=== PATIENT | male | born 1940 | race Caucasian/White ===

== ENCOUNTER 2019-01-01 22:21 | Inpatient (IN) | payer MEDICARE ==
[~2019-01-01] VITALS: Ht 172.7 cm; Wt 77.6 kg
[~2019-01-01 22:21] MED LIST: FUROSEMIDE20 M1 ORAL; GLIPIZIDE5 MG ORAL
[2019-01-01] MEDS ORDERED: METFORMIN HCL500 M1 ORAL (22:22)
--- NOTE | 2019-01-01 22:27 | Emergency Room Report ---
History of Present Illness General Chief Complaint: Dyspnea/Respdistress Source: Patient, Family Member, Medical Record, EMS Present Illness HPI This is a 78-year-old male with a history of renal failure on hemodialysis. Dialysis days are Tuesday, , and Tuesday. He presents with chief complaint rest or distress and shortness of breath. Onset tonight. Scheduled dialysis tomorrow. Per EMS he was in the low 50th percentile on room air. They placed him on oxygen. He does have oxygen tanks at home. No fever chills but no nausea no vomiting. Has chest tightness secondary to respiratory distress. Denies any other complaint. Allergies: Coded Allergies: PENICILLINS (Verified Allergy, Unknown, 05/22/18) Patient History Past Medical History: see triage record, old chart reviewed, HTN, renal disease , dialysis Past Surgical History: other Pertinent Family History: none Social History: Denies: smoking Immunizations: other Reviewed Nursing Documentation: PMH: Agreed; PSxH: Agreed Nursing Documentation-PMH Past Medical History: No History, Except For Hx Cardiac Problems: Yes - stent Hx Hypertension: Yes Hx Pacemaker: Yes - right pacemaker Hx Diabetes: Yes Hx Dialysis: Yes - Tue, Thus, Sat Review of Systems Eye: Denies: eye pain, blurred vision ENT: Denies: ear pain, nose congestion, throat swelling Respiratory: Reports: shortness of breath, MARVIN; Denies: cough Cardiovascular: Denies: chest pain, palpitations Gastrointestinal: Denies: abdominal pain, diarrhea, nausea, vomiting Musculoskeletal: Denies: back pain, joint pain Skin: Denies: rash Neurological: Denies: headache, numbness Endocrine: Denies: increased thirst, increased urine Hematologic/Lymphatic: Denies: easy bruising All Other Systems: negative except mentioned in HPI Physical Exam Vital Signs Date Time Temp Pulse Resp B/P (MAP) Pulse Ox O2 Delivery O2 Flow Rate FiO2 01/01/19 22:17 105 22 199/102 86 Simple Mask 6.0 vitals with high blood pressure and hypoxia Sp02 EP Interpretation: reviewed, abnormal General Appearance: well appearing, alert, moderate distress Head: normocephalic, atraumatic Eyes: bilateral eye PERRL, bilateral eye EOMI ENT: hearing grossly normal, normal pharynx Neck: full range of motion, supple, no meningismus Respiratory: chest non-tender, respiratory distress, decreased breath sounds, accessory muscle use, rales Cardiovascular #1: regular rate, rhythm, no murmur Gastrointestinal: normal bowel sounds, non tender, no mass, no organomegaly, no bruit, non-distended Musculoskeletal: back normal, normal range of motion Neurologic: alert, oriented x3 Psychiatric: mood/affect normal Skin: warm/dry Procedures Critical Care Time Critical Care Time Critical care is mandated in this patient who presented with pulmonary edema. Patient require my urgent intervention to attenuate the risks of respiratory collapse which may lead to cardiovascular collapse and . Critical care time is 35 minutes excluding any reportable procedure. Critical care time included evaluation, multiple reevaluation, looking at old charts, interpreting laboratory and diagnostic data, discussing case with patient and family and consultants, and charting. Medical Decision Making Diagnostic Impression: Primary Impression: Pulmonary edema with congestive heart failure Additional Impressions: Acute respiratory failure with hypoxia HTN (hypertension) Qualified Codes: I10 - Essential (primary) hypertension ER Course Patient presents with pulmonary edema secondary to fluid overloaded. He will need dialysis. He is comfortable on BiPAP but requiring 50-60% FiO2. Because of this he is stable for transfer the [facility]. I discussed this with Dr. Sandoval, case # [id number]. He agrees and approved patient for admission here. Leukocytosis probably secondary to acute stress response rather than infectious cause. The no evidence of pneumonia. I contacted Dr. Simon for admission. Lab Results Impression labs with elevated BNP EKG Diagnostic Results Rate: normal Rhythm: NSR ST Segments: other - Bifasicular block Rhythm Strip Diag. Results EP Interpretation: yes Rate: 67 Rhythm: NSR, no PVC's, no ectopy Chest X-Ray Diagnostic Results Chest X-Ray Diagnostic Results : Chest X-Ray Ordered: Yes # of Views/Limited/Complete: 1 View Indication: Shortness of Breath EP Interpretation: Yes Interpretation: no consolidation, no pneumothorax, other - pulm edema Last Vital Signs Date Time Temp Pulse Resp B/P (MAP) Pulse Ox O2 Delivery O2 Flow Rate FiO2 01/01/19 22:17 105 22 199/102 86 Simple Mask 6.0 Status: improved Disposition: ADMITTED INPATIENT Condition: Serious Jose Crawford MD Jan 01, 2019 22:27
[2019-01-01] MEDS ORDERED: Albuterol ud Inhalation HHN ONE (22:30)
--- NOTE | 2019-01-01 22:40 | NUR ---
ED Nurse Note: RECIEVED PT BIBA FROM HOME WITH C/O SUDDEN, SEVERE SOB, PT IS DIALYSIS PT AND DUE TOMORROW, PT ARRIVED WITH RESPIRATORY DISTRESS AT RATE OF 40 AND USE OF ACCESSORY MUSCLES, PT IS ON NRB AND IMMEDIATELY BEING PLACED ON BIPAP, PT IS SPEAKING AND AWAKE AND ALERT, DENIES CP OR ANY PAIN, SHUNT ON LEFT ARM INTACT AND PATENT WITH POSITIVE BRUIT AND THRILL, PT IMMEDIATELY GOWNED AND PLACED ON CARDIAC MONITORING, WILL RESUME CARE ORDERED AND CLOSELY MONITOR.
[2019-01-01 22:51] LABS: HEMATOCRIT 37.3 % (42.0-52.0); HEMOGLOBIN 12.3 G/DL (14.2-18.0); MEAN CORPUSCULAR VOLUME 89 FL (80-99); PLATELET COUNT 310 K/UL (150-450); RED BLOOD COUNT 4.18 M/UL (4.70-6.10); WHITE BLOOD COUNT 19.7 K/UL (4.8-10.8)
[2019-01-01 23:03] LABS: ANION GAP 13 mmol/L (5-15); BLOOD UREA NITROGEN 53 mg/dL (7-18); CALCIUM 9.6 MG/DL (8.5-10.1); CARBON DIOXIDE 29 MMOL/L (21-32); CHLORIDE 94 MMOL/L (98-107); CREATININE 8.4 MG/DL (0.55-1.30); POTASSIUM 5.2 MMOL/L (3.5-5.1); SODIUM 136 MMOL/L (136-145)
[2019-01-01 23:04] LABS: INR 2.6 (0.9-1.1)
[2019-01-01 23:16] LABS: ALANINE AMINOTRANSFERASE 50 U/L (12-78); ALBUMIN 3.6 G/DL (3.4-5.0); ALBUMIN/GLOBULIN RATIO 0.7 (1.0-2.7); ALKALINE PHOSPHATASE 112 U/L (46-116); ASPARTATE AMINO TRANSFERASE 30 U/L (15-37); CKMB 3.9 NG/ML (0.0-3.6); CREATINE KINASE 114 U/L (26-308)
[2019-01-02] VITALS (8 sets, daily range): BP systolic 124–167; BP diastolic 62–97
--- NOTE | 2019-01-02 | NUR ---
ED Nurse Note: PT CONTINUES TO REST IN BED, BREATHING EFFORT IS LESS AND RESPIRATORY RATE IS BETTER, PT DENIES CP OR ANY PAIN, IV SITE PATENT, PT BEING PREPARED FOR ADMISISON, WILL CONTINUE TO CLOSELY MONITOR AND SEND TO FLOOR WHEN BED AVAILABLE, PT REMAINS ON CARDIAC MONITORING, V/S STABLE.
--- NOTE | 2019-01-02 01:50 | NUR ---
ED Nurse Note: PT CONTINUES TO REST IN BED, BREATHING EFFORT IS LESS AND PT STATES HE FEELS MUCH BETTER, O2 SAT=98%, PT IV SITE INTACT AND PATENT, PT NOW HAS ROOM FOR HOSPITAL ADMISSION, BELONGINGS LIST COMPLETED, PT REMAINS ON BIPAP AND TOLERATING WELL, REPORT CALLED TO TRES SALAZAR ON UNIT, PT BEING TAKEN TO FLOOR VIA GURNEY AND ACLS PROTOCOLS WITH RN, ER-TECH, AND RESPIRATORY THERAPIST, NAD NOTED DURING TRANSFER TO FLOOR FOR ADMIT.
--- NOTE | 2019-01-02 02:25 | NUR ---
NURSE NOTES: Patient arrived from ED via gurney. Report received from TRES Yeung. Belongings accounted for at bedside. Placed into bed, legal referee is on, linens are changed, bed on lowest position with alarm activated, 2 side rails up and call light within reach. Patient has also been placed on BiPAP with settings of 12/5 FiO2:65% and O2 saturating at 93%. Left message for Dr. Simon for admission orders, will follow up.
--- NOTE | 2019-01-02 05:28 | NUR ---
NURSE NOTES: Left message on Dr. Simon's urgent line for admission orders, awaiting call back. Will continue to follow up.
[2019-01-02] MEDS ORDERED: GlipiZIDE 5mg tab ORAL SCH (06:30)
--- NOTE | 2019-01-02 07:15 | NUR ---
NURSE NOTES: RECEIVED PT WITH HOB ELEVATED 45 DEGREE AWAKE AND ALERT USING BIPAP 12/5 ,FIO2 65%,SAT 91%.PT REQUESTING FOR H.D .PLACED A TELEPHONE CALL TO DR ROD AND MADE AWARE AND NOTIFIED REGARDING PT IS ON BIPAP DUE TO SOB AND HE IS REQUESTING FOR H.D.DR ROD STATED " I ORDER H.D FOR THIS MORNING AND THE HAND SILVERING SUPERVISOR IS ON HER WAY".PT EXPLAINED THAT HAND SILVERING SUPERVISOR IS COMING SOON.PT STATED " OK".WILL CONT TO MONITOR.
--- NOTE | 2019-01-02 07:25 | NUR ---
HAND-OFF: Report given to TRES FRANCIS.
[2019-01-02] MEDS ORDERED: Dextrose 50% 25ml Syringe IV PRN (07:30)
--- NOTE | 2019-01-02 08:54 | NUR ---
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 ACUTE RESPIRATORY FAILURE WITH HYPOXIA VS: BP 199/102, P 105, T 98.4, RR 48, SpO2 86 ON Bi-pap WBC 19.7, RBC 4.18, Hgb 12.3, Hct 37.3, K 5.2, BUN 53, CR 8.4 IS;LASIX 40mg IV PROVENTIL 2.5mg HHN ADMITTED TO SDU DC PLAN: RETURN HOME
[2019-01-02] MEDS: Heparin 5000 units/ml inj SUBQ SCH ×2 (09:00→20:40)
[2019-01-02] MEDS ORDERED: metFORMIN 500mg tab ORAL SCH (09:00)
[2019-01-02] MEDS ORDERED: Vancomycin 1.5gm Premix IVPB ONE ×2 (10:00→14:00)
--- NOTE | 2019-01-02 10:00 | NUR ---
NURSE NOTES: PT RECEIVING H.D PROCEDURE.DIALYSIS IS PERFORMING BY SANGITA RN.PT TOLERATING WELL PROCEDURE.WILL CONT TO MONITOR.
--- NOTE | 2019-01-02 10:04 | NUR ---
RADIOLOGY DEPT., CHEST X-RAY DONE.-P.DYE
--- NOTE | 2019-01-02 10:30 | NUR ---
*-* INSURANCE *-* ALL CLINICALS AND REVIEWS HAVE BEEN FAXED TO: DAVID MARTI# [phone] [facility]: NEVIN P- [phone] ASK TO BE TRS TO [facility] F- [phone]
[2019-01-02] MEDS: Insulin NovoLOG Flexpen S/S (insulin sensitive) SUBQ SCH ×3 (11:30→20:39)
--- NOTE | 2019-01-02 12:26 | Cardiology Report ---
APPROVED REPORT EKG Measurement Heart [id number] CT [id number] [id number] Sinus tachycardia Right bundle branch block Left posterior fascicular block Bifascicular block Abnormal ECG
--- NOTE | 2019-01-02 12:52 | Diagnostic Imaging Report ---
Indication: Shortness of breath Technique: One view of the chest Comparison: 05/23/2018 Findings: The heart is borderline enlarged. There is extensive diffuse bilateral interstitial and airspace disease. This is more extensive than seen on the previous study. Right chest pacemaker is again noted. Previously demonstrated endotracheal tube is no longer present Impression: Cardiomegaly Evidence of extensive bilateral pulmonary parenchymal infiltrates versus edema
--- NOTE | 2019-01-02 13:00 | NUR ---
NURSE NOTES:HEMODIALYSIS COMPLETED ,OUT PUT 3 LITERS.PT V/S STABLE .PT TOLERATED WELL PROCEDURE.WILL CONT TO MONITOR.
--- NOTE | 2019-01-02 14:13 | Diagnostic Imaging Report ---
Indication: Shortness of breath Technique: One view of the chest Comparison: 01/01/2019 Findings: Bilateral extensive and severe interstitial and airspace disease persists, unchanged. Right chest pacemaker is again demonstrated. The heart is enlarged. There is small amount of pleural fluid demonstrated on the right. Findings are essentially unchanged Impression: Unchanged, over one day, findings as above.
--- NOTE | 2019-01-02 15:15 | History and Physical Report ---
DATE OF ADMISSION: 01/02/2019 REASON FOR ADMISSION: Respiratory distress, pulmonary edema. HISTORY: The patient is a 78-year-old male with a history of renal failure on dialysis. The patient with respiratory distress, acute in nature. The patient noted to have significant oxygen desaturation, placed on BiPAP and admitted to the [facility]. PAST MEDICAL HISTORY: Notable for hypertension, end-stage renal disease on dialysis, history of CAD, history of stent, and history of pacemaker. MEDICATIONS: Reviewed. ALLERGIES: Reviewed. PHYSICAL EXAMINATION: GENERAL: A well-developed male. VITAL SIGNS: Otherwise reviewed. HEENT: Negative. NECK: Supple. LUNGS: With moderate breath sounds. Crackles noted. CARDIAC: S1, S2. Regular rate and rhythm. ABDOMEN: Soft and nontender. EXTREMITIES: No edema. NEUROLOGIC: Grossly nonfocal. LABORATORY DATA: Reviewed. White cell count 19, hemoglobin 12, hematocrit 37, and platelets are 310. Arterial blood gas is pending as of this morning. Chemistry noted, potassium 5.2, BUN and creatinine 53 and 8.4. BNP greater than 35,000. IMPRESSION: 1. Fluid overload. 2. Pulmonary edema. 3. End-stage renal disease. 4. Leukocytosis of unclear etiology. 5. Hypernatremia. 6. Hyperglycemia. 7. Diabetes. RECOMMENDATIONS: Resume medications. Hold metformin with end-stage renal disease. Dialysis per renal. DVT prophylaxis. We will obtain cultures and follow up white cell count as of this morning and stabilize and discharge to [facility] once stable. Marco Simon M.D. DR: KATHERINE JOB#: [id number] CC:
--- NOTE | 2019-01-02 19:15 | NUR ---
HAND-OFF: Report given to .MARIE JOSHUA.
--- NOTE | 2019-01-02 19:25 | NUR ---
NURSE NOTES: Received patient from TRES FRANCIS. Will continue plan of care.
--- NOTE | 2019-01-02 20:30 | Consultation ---
DATE OF CONSULTATION: 01/02/2019 NEPHROLOGY CONSULTATION CONSULTING PHYSICIAN: Rafael Burgess M.D. ATTENDING PHYSICIAN: Marco Simon M.D. REASON FOR CONSULTATION: This is a dialysis patient. HISTORY OF PRESENT ILLNESS: This is a 78-year-old male, who is on dialysis every Tuesday, , Tuesday at [facility] . His last dialysis was 3 days ago on Tuesday. The patient became short of breath and was transferred via paramedics to this hospital. PAST MEDICAL HISTORY: 1. End-stage renal failure, on dialysis. 2. Congestive heart failure. 3. Hypertensive cardiovascular disease. 4. Status post pacemaker. 5. Type 2 diabetes mellitus. HOME MEDICATIONS: Lasix, glipizide, and metformin. ALLERGIES: Penicillins. FAMILY HISTORY: Unremarkable. SOCIAL HISTORY: The patient lives at home. HABITS: He is nonsmoker and nondrinker. There is no history of illicit drug abuse. REVIEW OF SYSTEMS: HEENT: Hearing and eyesight are normal. ENDOCRINE: Significant for type 2 diabetes mellitus. RESPIRATORY: Significant for shortness of breath. NEUROLOGIC: No history of stroke, syncope, or Parkinson disease. PHYSICAL EXAMINATION: GENERAL: This is an elderly male, who is in oremblhq-aj-mpmqvy dyspnea. VITAL SIGNS: Blood pressure 169/96, pulse 72 and regular, respirations 20, and temperature 98. HEENT: The head is normocephalic and atraumatic. Pupils are equal, round, and reactive to light and accommodation consensually. NECK: Supple. Trachea midline. There was no lymphadenopathy or thyromegaly. LUNGS: Bilateral crackles. HEART: Regular rate and rhythm without rubs, murmurs, or gallops. ABDOMEN: Soft and nontender. Bowel sounds were active. EXTREMITIES: No clubbing, cyanosis, or edema. NEUROLOGICAL: He is alert and oriented x4. Cranial nerves II through XII intact. LABORATORY AND ANCILLARY DATA: CBC shows white count 19,700 and hemoglobin 12.3. Sodium 136, potassium 5.2, BUN 53, and creatinine 8.4. ABGs, the most recent one, pH 7.443, pCO2 39.5, and pO2 81.5. Chest x-ray compatible with pulmonary edema. ASSESSMENT: 1. Pulmonary edema. 2. End-stage renal failure, on dialysis. 3. Congestive heart failure. 4. Hypertensive cardiovascular disease. 5. Status post pacemaker. 6. Type 2 diabetes mellitus. PLAN: 1. The patient is already on a hemodialysis. 2. Continue selective medications. Thank you, Dr. Simon, for letting me participate in the care of this patient. Rfaael Burgess M.D. DR: CONY JOB#: [id number] CC:
[2019-01-03] VITALS: BP 138/77
[2019-01-03 04:00] VITALS: BP 133/71
[2019-01-03] MEDS: Insulin NovoLOG Flexpen S/S (insulin sensitive) SUBQ SCH ×4 (05:16→21:11)
--- NOTE | 2019-01-03 06:52 | NUR ---
RESPIRATORY NOTE:Received pt on bipap facial mask and settings of 12/5 fio2 50%. Pt has tape on face. No signs of redness. Pt is showing no s/s of distress. Will cont. to monitor pt.
--- NOTE | 2019-01-03 07:10 | NUR ---
HAND-OFF: Report given to TRES Calle.
--- NOTE | 2019-01-03 07:45 | NUR ---
NURSE NOTES: Report received from TRES Fair. Pt on BiPAP with settings of 12/5 FiO2:65% and O2 saturating at 93%. VSS. Peripheral IV and left forearm shunt in place. Safety measures in place. will continue plan of care.
[2019-01-03 08:00] VITALS: BP 127/80
[2019-01-03] MEDS: Heparin 5000 units/ml inj SUBQ SCH ×2 (08:36→21:15)
[2019-01-03 12:00] VITALS: BP 132/80
--- NOTE | 2019-01-03 13:04 | Nephrology Progress Note ---
Assessment/Plan Plan For HD + UF today Subjective Subjective + SOB Objective Objective Last 24 Hour Vital Signs Date Time Temp Pulse Resp B/P (MAP) Pulse Ox O2 Delivery O2 Flow Rate FiO2 01/03/19 11:22 65 24 95 Facial 50 01/03/19 08:00 Bi-pap 01/03/19 08:00 98.5 66 29 127/80 (96) 99 01/03/19 08:00 70 01/03/19 08:00 65 01/03/19 06:50 60 26 98 Facial 50 01/03/19 05:08 76 27 98 Facial 50 01/03/19 04:00 98.9 66 31 133/71 (91) 99 01/03/19 04:00 Bi-pap 01/03/19 04:00 65 01/03/19 03:45 64 01/03/19 02:46 77 25 99 Facial 50 01/03/19 01:14 78 26 99 Facial 55 01/03/19 00:00 Bi-pap 01/03/19 00:00 99.0 74 31 138/77 (97) 100 01/02/19 23:30 74 01/02/19 22:58 83 27 100 Facial 60 01/02/19 21:11 77 29 99 Facial 60 01/02/19 20:00 Bi-pap 01/02/19 20:00 97.4 75 38 139/78 (98) 99 01/02/19 20:00 65 01/02/19 19:15 81 36 99 Facial 60 01/02/19 19:09 83 01/02/19 17:15 62 28 99 Facial 65 01/02/19 16:00 Bi-pap 01/02/19 16:00 65 01/02/19 16:00 98.4 69 30 136/65 (88) 98 01/02/19 16:00 71 01/02/19 15:15 68 26 98 Facial 65 Intake and Output 01/02/19 01/03/19 19:00 07:00 Intake Total 120 ml Balance 120 ml Intake Oral 120 ml # Bowel Movements 1 Height (Feet): 5 Height (Inches): 8.00 Weight (Pounds): 185 Objective On BIPAP. CV RR Lungs B wheezes. Abd pendulous, SNT. BS + E + edema. HITESH KRISTINE. Rafael Burgess MD Jan 03, 2019 13:04
--- NOTE | 2019-01-03 13:27 | NUR ---
*-* INSURANCE *-* ALL CLINICALS AND REVIEWS HAVE BEEN FAXED TO: DAVID MARTI# [id number] [facility]: NEVIN P- [phone] ASK TO BE TRS TO [facility] F- [phone]
--- NOTE | 2019-01-03 13:33 | NUR ---
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 ACUTE RESPIRATORY FAILURE WITH HYPOXIA VS: BP 127/80, P 65, T 98.5, RR 31, SpO2 95 Bi-pap FiO2 65 IS:HEPARIN SUBQ NOVOLOG SUBQ SDU STATUS
--- NOTE | 2019-01-03 14:00 | NUR ---
NURSE NOTES: HD complete, 3 L out. VSS.
[2019-01-03 16:00] VITALS: BP 144/69
--- NOTE | 2019-01-03 18:32 | General Progress Note ---
Assessment/Plan Assessment/Plan 1. Fluid overload. 2. Pulmonary edema. 3. End-stage renal disease. 4. Leukocytosis of unclear etiology. 5. Hypernatremia. 6. Hyperglycemia. 7. Diabetes. PLAN vanco HD monitor labs and cxr dispo in am if stable and nontoxic improved Subjective Allergies: Coded Allergies: PENICILLINS (Verified Allergy, Unknown, 05/22/18) Subjective improved off BIPAP s/p HD Objective Last 24 Hour Vital Signs Date Time Temp Pulse Resp B/P (MAP) Pulse Ox O2 Delivery O2 Flow Rate FiO2 01/03/19 16:00 71 01/03/19 16:00 65 01/03/19 16:00 Bi-pap 01/03/19 16:00 98.5 64 29 144/69 (94) 99 01/03/19 14:33 71 24 99 Facial 50 01/03/19 12:42 62 22 98 Facial 50 01/03/19 12:00 65 01/03/19 12:00 69 01/03/19 12:00 Bi-pap 01/03/19 12:00 98.3 62 28 132/80 (97) 99 01/03/19 11:22 65 24 95 Facial 50 01/03/19 08:00 Bi-pap 01/03/19 08:00 98.5 66 29 127/80 (96) 99 01/03/19 08:00 70 01/03/19 08:00 65 01/03/19 06:50 60 26 98 Facial 50 01/03/19 05:08 76 27 98 Facial 50 01/03/19 04:00 98.9 66 31 133/71 (91) 99 01/03/19 04:00 Bi-pap 01/03/19 04:00 65 01/03/19 03:45 64 01/03/19 02:46 77 25 99 Facial 50 01/03/19 01:14 78 26 99 Facial 55 01/03/19 00:00 Bi-pap 01/03/19 00:00 99.0 74 31 138/77 (97) 100 01/02/19 23:30 74 01/02/19 22:58 83 27 100 Facial 60 01/02/19 21:11 77 29 99 Facial 60 01/02/19 20:00 Bi-pap 01/02/19 20:00 97.4 75 38 139/78 (98) 99 01/02/19 20:00 65 01/02/19 19:15 81 36 99 Facial 60 01/02/19 19:09 83 Intake and Output 01/02/19 01/03/19 19:00 07:00 Intake Total 120 ml Balance 120 ml Intake Oral 120 ml # Bowel Movements 1 Height (Feet): 5 Height (Inches): 8.00 Weight (Pounds): 185 Objective WDWN NAD clear breath sounds bilaterally without rhonchi or wheeze [id number] without MRG NABS nontender no HSM no CCE nonfocal Marco Simon MD Jan 03, 2019 18:32
--- NOTE | 2019-01-03 19:15 | Physician Query ---
PHYSICIAN DOCUMENTATION QUERY CLARIFICATION OF SIGNS/SYMPTOMS/DX OR CAUSE Dear Dr: Therese Simon : Date: MR #: Patient Name: _LILIA PRITCHARD Admit Date: Documentation clarification is required to meet compliance, accuracy in coding and severity of illness reflection for your patient. There is clinical documentation of SOB with treatment and/or monitoring present in the medical record. Additional documentation is necessary to identify the underlying cause, if suspected for this condition. This is a 78-year-old male, who is on dialysis. The patient became short of breath Physical Exam: GENERAL: This is an elderly male, who is in mddrojdh-hb-hbyfdj dyspnea. LUNGS: Bilateral crackles. Oxygen delivery method: On BIPAP, mask Amount of oxygen:6 LPM Pulse ox: 86L RR: 48,32 Dx:Was diagnosed with pulmonary edema/fluid overloud CXR: Evidence of extensive bilateral pulmonary parenchymal infiltrates versus edema, pleural fluid demonstrated on the right Please document, if known, the appropriate diagnosis (cause of the s/sx/dx) on the progress notes or on this form as an addendum. (Sign and date all documentation) Note: If you are/were treating a suspected, possible or probable, please document it as such. [ x ] Acute respiratory failure [ ] Acute respiratory distress [ ] other, please specify [ ] Unable to determine __ MD Signature: __ Date: If you have any questions, please contact the HIM Department ([facility]) at ext. [phone] or cell #[phone]. Thank You! This form is a permanent part of the medical record MTDD
--- NOTE | 2019-01-03 19:19 | NUR ---
HAND-OFF: Report given to TRES Atkinson.
--- NOTE | 2019-01-03 19:20 | NUR ---
NURSE NOTES: Received patient from Luc JOSHUA. Patient is awake, oriented x4, able to make demands known. Patient is receiving oxygen via Nasal Cannula at 2L/min showing no signs of respiratory distress. Patient received dialysis AM shift and had 3 liters removed. IV site is a Right AC 20 gauge, patent and asymptomatic. Bed is locked, placed in lowest position, call light within reach, side rails up x2. All needs attended to, will continue to monitor.
[2019-01-03 20:00] VITALS: BP 152/87
[2019-01-04] VITALS: BP 140/76
[2019-01-04 04:00] VITALS: BP 149/84
[2019-01-04 05:28] LABS: BASOPHILS % (AUTO) 0.7 % (0.0-2.0); EOSINOPHILS % (AUTO) 2.8 % (0.0-3.0); HEMATOCRIT 28.8 % (42.0-52.0); HEMOGLOBIN 9.6 G/DL (14.2-18.0); MEAN CORPUSCULAR VOLUME 88 FL (80-99); MONOCYTES % (AUTO) 11.1 % (1.0-10.0); NEUTROPHILS % (AUTO) 70.4 % (45.0-75.0); PLATELET COUNT 182 K/UL (150-450); RED BLOOD COUNT 3.26 M/UL (4.70-6.10); RED CELL DISTRIBUTION WIDTH 17.6 % (11.6-14.8); WHITE BLOOD COUNT 9.7 K/UL (4.8-10.8)
[2019-01-04 05:56] LABS: ANION GAP 13 mmol/L (5-15); BLOOD UREA NITROGEN 53 mg/dL (7-18); CALCIUM 8.8 MG/DL (8.5-10.1); CARBON DIOXIDE 25 MMOL/L (21-32); CHLORIDE 96 MMOL/L (98-107); CREATININE 6.9 MG/DL (0.55-1.30); POTASSIUM 4.7 MMOL/L (3.5-5.1); SODIUM 134 MMOL/L (136-145)
[2019-01-04] MEDS: Insulin NovoLOG Flexpen S/S (insulin sensitive) SUBQ SCH ×2 (06:24→11:29)
--- NOTE | 2019-01-04 07:05 | NUR ---
HAND-OFF: Report given to Sheela JOSHUA and Zachery JOSHUA. Addendum: 01/04/19 at 0705 by Liseth Garcia RN Patient shows no signs of distress.
--- NOTE | 2019-01-04 07:08 | NUR ---
NURSE NOTES: Patient received from Demetrio Beebe RN. Patient in bed with no signs of distress. Bed at its lowest position and call light in reach. Will continue to monitor.
--- NOTE | 2019-01-04 07:48 | Nephrology Progress Note ---
Assessment/Plan Plan For HD + UF tomorrow. Anemia of CKD - MELA + IV Iron Subjective Subjective + SOB Objective Objective Last 24 Hour Vital Signs Date Time Temp Pulse Resp B/P (MAP) Pulse Ox O2 Delivery O2 Flow Rate FiO2 01/04/19 05:03 68 25 98 Facial 50 01/04/19 04:10 71 01/04/19 04:00 65 01/04/19 04:00 98.4 74 29 149/84 (105) 100 01/04/19 04:00 Bi-pap 01/04/19 03:17 74 22 100 Facial 50 01/04/19 01:37 77 23 99 Facial 50 01/04/19 00:00 97.7 70 30 140/76 (97) 100 01/04/19 00:00 Bi-pap 01/03/19 23:27 75 01/03/19 23:16 76 23 98 Facial 50 01/03/19 21:20 76 24 100 Facial 50 01/03/19 20:00 Bi-pap 01/03/19 20:00 97.4 71 31 152/87 (108) 99 01/03/19 20:00 50 01/03/19 19:33 78 28 95 Facial 50 01/03/19 19:32 76 01/03/19 16:00 71 01/03/19 16:00 65 01/03/19 16:00 Bi-pap 01/03/19 16:00 98.5 64 29 144/69 (94) 99 01/03/19 14:33 71 24 99 Facial 50 01/03/19 12:42 62 22 98 Facial 50 01/03/19 12:00 65 01/03/19 12:00 69 01/03/19 12:00 Bi-pap 01/03/19 12:00 98.3 62 28 132/80 (97) 99 01/03/19 11:22 65 24 95 Facial 50 01/03/19 08:00 Bi-pap 01/03/19 08:00 98.5 66 29 127/80 (96) 99 01/03/19 08:00 70 01/03/19 08:00 65 Intake and Output 01/03/19 01/04/19 19:00 07:00 Intake Total 250 ml 100 ml Balance 250 ml 100 ml Intake Oral 250 ml 100 ml Laboratory Tests 01/04/19 03:35: White Blood Count 9.7, Red Blood Count 3.26L, Hemoglobin 9.6L, Hematocrit 28.8L , Mean Corpuscular Volume 88, Mean Corpuscular Hemoglobin 29.4, Mean Corpuscular Hemoglobin Concent 33.3, Red Cell Distribution Width 17.6H, Platelet Count 182, Mean Platelet Volume 6.7, Neutrophils (%) (Auto) 70.4, Lymphocytes (%) (Auto) 15.0L, Monocytes (%) (Auto) 11.1H, Eosinophils (%) (Auto ) 2.8, Basophils (%) (Auto) 0.7, Sodium Level 134L, Potassium Level 4.7, Chloride Level 96L, Carbon Dioxide Level 25, Anion Gap 13, Blood Urea Nitrogen 53H, Creatinine 6.9H, Estimat Glomerular Filtration Rate , Glucose Level 70L, Calcium Level 8.8 01/04/19 03:55: Random Vancomycin Level 13.2 Height (Feet): 5 Height (Inches): 8.00 Weight (Pounds): 173 Objective On BIPAP. CV RR Lungs B wheezes. Abd pendulous, SNT. BS + E + edema. HITESH AVF. Rafael Burgess MD Jan 04, 2019 07:48
[2019-01-04 08:00] VITALS: BP 151/76
[2019-01-04] MEDS ORDERED: Vancomycin 1.25gm Premix IVPB ONE (08:00)
[2019-01-04] MEDS: Heparin 5000 units/ml inj SUBQ SCH ×2 (08:25→21:57)
--- NOTE | 2019-01-04 08:36 | General Progress Note ---
Assessment/Plan Assessment/Plan 1. Fluid overload. 2. Pulmonary edema. 3. End-stage renal disease. 4. Leukocytosis of unclear etiology. 5. Hypernatremia. 6. Hyperglycemia. 7. Diabetes. PLAN vanco- dc cultures negatve HD dc home follow up with [facility] and dialysis improved Subjective Allergies: Coded Allergies: PENICILLINS (Verified Allergy, Unknown, 05/22/18) Subjective improved no distress wants to go home Objective Last 24 Hour Vital Signs Date Time Temp Pulse Resp B/P (MAP) Pulse Ox O2 Delivery O2 Flow Rate FiO2 01/04/19 08:00 98.8 77 25 151/76 (101) 94 01/04/19 05:03 68 25 98 Facial 50 01/04/19 04:10 71 01/04/19 04:00 65 01/04/19 04:00 98.4 74 29 149/84 (105) 100 01/04/19 04:00 Bi-pap 01/04/19 03:17 74 22 100 Facial 50 01/04/19 01:37 77 23 99 Facial 50 01/04/19 00:00 97.7 70 30 140/76 (97) 100 01/04/19 00:00 Bi-pap 01/03/19 23:27 75 01/03/19 23:16 76 23 98 Facial 50 01/03/19 21:20 76 24 100 Facial 50 01/03/19 20:00 Bi-pap 01/03/19 20:00 97.4 71 31 152/87 (108) 99 01/03/19 20:00 50 01/03/19 19:33 78 28 95 Facial 50 01/03/19 19:32 76 01/03/19 16:00 71 01/03/19 16:00 65 01/03/19 16:00 Bi-pap 01/03/19 16:00 98.5 64 29 144/69 (94) 99 01/03/19 14:33 71 24 99 Facial 50 01/03/19 12:42 62 22 98 Facial 50 01/03/19 12:00 65 01/03/19 12:00 69 01/03/19 12:00 Bi-pap 01/03/19 12:00 98.3 62 28 132/80 (97) 99 01/03/19 11:22 65 24 95 Facial 50 Intake and Output 01/03/19 01/04/19 19:00 07:00 Intake Total 250 ml 100 ml Balance 250 ml 100 ml Intake Oral 250 ml 100 ml Laboratory Tests 01/04/19 03:35: White Blood Count 9.7, Red Blood Count 3.26L, Hemoglobin 9.6L, Hematocrit 28.8L , Mean Corpuscular Volume 88, Mean Corpuscular Hemoglobin 29.4, Mean Corpuscular Hemoglobin Concent 33.3, Red Cell Distribution Width 17.6H, Platelet Count 182, Mean Platelet Volume 6.7, Neutrophils (%) (Auto) 70.4, Lymphocytes (%) (Auto) 15.0L, Monocytes (%) (Auto) 11.1H, Eosinophils (%) (Auto ) 2.8, Basophils (%) (Auto) 0.7, Sodium Level 134L, Potassium Level 4.7, Chloride Level 96L, Carbon Dioxide Level 25, Anion Gap 13, Blood Urea Nitrogen 53H, Creatinine 6.9H, Estimat Glomerular Filtration Rate , Glucose Level 70L, Calcium Level 8.8 01/04/19 03:55: Random Vancomycin Level 13.2 Height (Feet): 5 Height (Inches): 8.00 Weight (Pounds): 173 Objective WDWN NAD clear breath sounds bilaterally without rhonchi or wheeze [id number] without MRG NABS nontender no HSM no CCE nonfocal Marco Simon MD Jan 04, 2019 08:36
--- NOTE | 2019-01-04 09:47 | NUR ---
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 ACUTE RESPIRATORY FAILURE WITH HYPOXIA VS: BP 151/76, P 77, T 98.4, RR 29, SpO2 100 on Bi-pap RBC 3.26, Hgb 9.6, Hct 28.8, Na 134 IS:VANCOMYCIN 275ml IVPB HEPARIN SUBQ SDU STATUS
--- NOTE | 2019-01-04 10:40 | NUR ---
HAND-OFF: Report given to James Tanner RN.
--- NOTE | 2019-01-04 10:40 | NUR ---
NURSE NOTES: Received report TRES Coker patient awake conversant ,on 4 liters nasal cannula,no sob,assisted up to chair did oral care,partial wash,,stable,slight SOB going back to bed,keep head 30 degrees patient comfort,felt better
[2019-01-04 11:51] VITALS: BP 159/80
--- NOTE | 2019-01-04 12:35 | NUR ---
NURSE NOTES: Patient transferred to [facility] per bed,stable ,on 4 liters nasal cannula,with help TRES Marie,transferred with insulin pen and belongings as listed received by TRES Rodriguez
--- NOTE | 2019-01-04 12:40 | NUR ---
HAND-OFF: Report given to TRES Rodriguez,patient stable,served lunch,patient thankful of care
[2019-01-04 13:10] LABS: BASOPHILS % (AUTO) 0.6 % (0.0-2.0); EOSINOPHILS % (AUTO) 1.7 % (0.0-3.0); HEMATOCRIT 33.4 % (42.0-52.0); HEMOGLOBIN 10.8 G/DL (14.2-18.0); LYMPHOCYTES % (AUTO) 10.1 % (20.0-45.0); MEAN CORPUSCULAR VOLUME 89 FL (80-99); MONOCYTES % (AUTO) 10.2 % (1.0-10.0); NEUTROPHILS % (AUTO) 77.4 % (45.0-75.0); PLATELET COUNT 227 K/UL (150-450); RED BLOOD COUNT 3.76 M/UL (4.70-6.10); WHITE BLOOD COUNT 10.8 K/UL (4.8-10.8)
[2019-01-04] MEDS ORDERED: Heparin Sod 1000 units/ml 10ml IV ONE (13:15)
[2019-01-04] MEDS ORDERED: Heparin Sod 1000 units/ml 10ml IV SCH (13:15)
[2019-01-04 13:24] LABS: ANION GAP 13 mmol/L (5-15); BLOOD UREA NITROGEN 61 mg/dL (7-18); CALCIUM 9.3 MG/DL (8.5-10.1); CARBON DIOXIDE 27 MMOL/L (21-32); CHLORIDE 92 MMOL/L (98-107); CREATININE 7.7 MG/DL (0.55-1.30); POTASSIUM 4.8 MMOL/L (3.5-5.1); SODIUM 132 MMOL/L (136-145)
--- NOTE | 2019-01-04 13:30 | NUR ---
NURSE NOTES: Received a call from TRES Lara from [facility] stating that [facility] had been called and confirmed for tomorrow, 01/05/2019.
--- NOTE | 2019-01-04 15:23 | NUR ---
*-* INSURANCE *-* ALL CLINICALS AND REVIEWS HAVE BEEN FAXED TO: DAVID MARTI# [id number] [facility]: [place] P- [phone]- ASK TO BE TRS TO [facility] F- [phone]
[2019-01-04 16:00] VITALS: BP 165/80
[2019-01-04] MEDS: NovoLOG Insulin Flexpen SUBQ SCH ×2 (17:28→21:55)
--- NOTE | 2019-01-04 17:49 | Cardiology Report ---
APPROVED REPORT EXAM: Two-dimensional and M-mode echocardiogram with Doppler and color Doppler. INDICATION Congestive Heart Failure M-Mode DIMENSIONS IVSd1.3 (0.7-1.1cm)Left Atrium (MM)2.8 (1.6-4.0cm) LVDd5.2 (3.5-5.6cm)Aortic Root3.9 (2.0-3.7cm) PWd1.0 (0.7-1.1cm)Aortic Cusp Exc.1.4 (1.5-2.0cm) IVSs1.4 cm LVDs3.4 (2.5-4.0cm) Normal left ventricular chamber size, systolic function and wall motion to extend visualized . Left ventricular ejection fraction estimated to be 55-60%. No evidence of left ventricular hypertrophy . Anterior Echo-free space, may be due to pericardial fat or effusion. All other cardiac chamber sizes are within normal limits. Focal aortic valve sclerosis with decreased cusp excursion. Mildly Thickened mitral valve leaflets with normal excursion. Pulmonic valve not well visualized. Normal tricuspid valve structure. IVC at normal size with physiologic collapse . Pacemaker wire noted in RV. A color flow and spectral Doppler study was performed and revealed: Mild aortic insufficiency . Peak aortic valve gradient of 22 mm Hg and a mean of 11 mmHg. Aortic valve area 1.4 cm2 calculated by continuity equation. Mild mitral regurgitation. Mitral diastolic velocities suggest reduced left ventricular relaxation c/w mild LV diastolic dysfunction (Grade I ). Mild tricuspid regurgitation. Tricuspid systolic velocities suggests peak right ventricular systolic pressure of 37mmHg,consistent with mild pulmonary hypertension . Trace pulmonic regurgitation
--- NOTE | 2019-01-04 18:55 | NUR ---
RESPIRATORY NOTE: Called to pt's room to assess pt & place on BiPAP. RN at bedside w/ pt as I arrived in the room. Pt alert/awake, follows commands, complaining of SOB, but denies chest pain. Pt also sweating & desaturating. Pt placed on BiPAP 12/5, backup rate 20, 100%. Facial Mask is placed, skin intact, no redness/breakdowns noted. Foam tape applied on pt's nosebridge/cheeks/chin to prevent any irritations. B/S jazmin. diminished, nonproductive cough. Pt calmed down as soon as he was placed on BiPAP. Pt more comfortable on current settings, minimal work of breathing & spO2 starting to come up. BiPAP plugged into red outlet. Pt states he feels much better. Will continue to monitor pt.
--- NOTE | 2019-01-04 19:21 | NUR ---
HAND-OFF: Report given to TRES Jason. Plan of care endorsed
--- NOTE | 2019-01-04 19:53 | NUR ---
NURSE NOTES: Received pt from TRES Rodriguez. Pt asleep with bipap on. Bed in lowest position. Call light within reach. Family at bedside. Will continue to monitor.
[2019-01-04 20:00] VITALS: BP 170/87
--- NOTE | 2019-01-04 22:54 | NUR ---
NURSE NOTES: Called and left a message with Dr. Simon regarding pts request for a sleeping pill. Awaiting call back.
[2019-01-05] VITALS: BP 131/80
[2019-01-05 04:00] VITALS: BP 170/62
--- NOTE | 2019-01-05 05:01 | NUR ---
NURSE NOTES: Pt breathing is abnormally irregular and very anxious. Called and left a message with the dialysis company to see if the nurse can come stat. Awaiting call back.
[2019-01-05] MEDS ORDERED: LORazepam Inj 2mg/ml 1ml IV PRN (05:45)
[2019-01-05] MEDS ORDERED: LORazepam 1mg tab ORAL PRN (05:45)
[2019-01-05] MEDS: NovoLOG Insulin Flexpen SUBQ SCH ×4 (06:32→21:33)
[2019-01-05 06:36] LABS: HEMATOCRIT 29.6 % (42.0-52.0); HEMOGLOBIN 9.9 G/DL (14.2-18.0); MEAN CORPUSCULAR VOLUME 88 FL (80-99); PLATELET COUNT 228 K/UL (150-450); RED BLOOD COUNT 3.36 M/UL (4.70-6.10); RED CELL DISTRIBUTION WIDTH 18.1 % (11.6-14.8); WHITE BLOOD COUNT 12.5 K/UL (4.8-10.8)
--- NOTE | 2019-01-05 06:59 | NUR ---
pt changed his mind about the ativan. Unable to return it to the [facility]. NURSE NOTES:
[2019-01-05] MEDS ORDERED: Heparin Sod 1000 units/ml 10ml IV SCH ×2 (07:00→08:00)
--- NOTE | 2019-01-05 07:30 | NUR ---
NURSE NOTES: Received report from TRES Jason. Pt is resting in bed about to received HD. Pt is on BiPap. He states he feels a bit better but did not get too much rest. Will continue to monitor.
--- NOTE | 2019-01-05 07:46 | NUR ---
HAND-OFF: Report given to TRES Rodriguez. Pt stable and getting HD.
--- NOTE | 2019-01-05 08:21 | Nephrology Progress Note ---
Assessment/Plan Plan For HD + UF today. Anemia of CKD - MELA + IV Iron. Needs more UF + HD! Subjective Subjective Very SOB!!! Objective Objective Last 24 Hour Vital Signs Date Time Temp Pulse Resp B/P (MAP) Pulse Ox O2 Delivery O2 Flow Rate FiO2 01/05/19 05:00 170/62 01/05/19 04:58 121 52 93 Facial 100 01/05/19 04:00 97.9 79 19 170/62 (98) 80 01/05/19 04:00 93 01/05/19 04:00 4.0 100 01/05/19 03:05 72 39 99 Facial 40 01/05/19 01:13 73 35 100 Facial 40 01/05/19 00:00 72 01/05/19 00:00 4.0 40 01/05/19 00:00 99.1 75 18 131/80 (97) 100 01/04/19 22:45 183/88 01/04/19 21:05 72 37 99 Facial 50 01/04/19 21:00 Bi-pap 4.0 01/04/19 20:00 100.1 90 18 170/87 (114) 100 01/04/19 20:00 91 01/04/19 18:50 98 46 92 Facial 100 01/04/19 18:50 98 46 Bi-pap 100 01/04/19 16:44 4.0 65 01/04/19 16:00 70 01/04/19 16:00 97.3 72 19 165/80 (108) 94 01/04/19 12:00 Nasal Cannula 4.0 01/04/19 12:00 4.0 01/04/19 11:51 98.8 80 20 159/80 (106) 94 Intake and Output 01/04/19 01/05/19 18:59 06:59 Intake Total 515.000 ml Output Total 50 ml 0 ml Balance 465.000 ml 0 ml Intake Oral 240 ml IV Total 275.000 ml Output Urine Total 50 ml 0 ml # Voids 1 Laboratory Tests 01/04/19 13:00: White Blood Count 10.8, Red Blood Count 3.76L, Hemoglobin 10.8L, Hematocrit 33.4L, Mean Corpuscular Volume 89, Mean Corpuscular Hemoglobin 28.6, Mean Corpuscular Hemoglobin Concent 32.2, Red Cell Distribution Width 18.0H, Platelet Count 227, Mean Platelet Volume 6.4L, Neutrophils (%) (Auto) 77.4H, Lymphocytes (%) (Auto) 10.1L, Monocytes (%) (Auto) 10.2H, Eosinophils (%) (Auto ) 1.7, Basophils (%) (Auto) 0.6, Sodium Level 132L, Potassium Level 4.8, Chloride Level 92L, Carbon Dioxide Level 27, Anion Gap 13, Blood Urea Nitrogen 61H, Creatinine 7.7H, Estimat Glomerular Filtration Rate , Glucose Level 169#H, Calcium Level 9.3 01/05/19 06:19: White Blood Count 12.5H, Red Blood Count 3.36L, Hemoglobin 9.9L, Hematocrit 29.6L, Mean Corpuscular Volume 88, Mean Corpuscular Hemoglobin 29.5, Mean Corpuscular Hemoglobin Concent 33.4, Red Cell Distribution Width 18.1H, Platelet Count 228, Mean Platelet Volume 6.9, Neutrophils (%) (Auto) , Lymphocytes (%) (Auto) , Monocytes (%) (Auto) , Eosinophils (%) (Auto) , Basophils (%) (Auto) , Neutrophils % (Manual) [Pending], Lymphocytes % (Manual) [Pending], Platelet Estimate [Pending], Platelet Morphology [Pending] 01/05/19 06:20: Arterial Blood pH 7.394, Arterial Blood Partial Pressure CO2 30.9L, Arterial Blood Partial Pressure O2 197.7H, Arterial Blood HCO3 18.5L, Arterial Blood Oxygen Saturation 99.0, Arterial Blood Base Excess -5.5L, Isidoro Test Positive Height (Feet): 5 Height (Inches): 8.00 Weight (Pounds): 173 Objective On BIPAP. CV RR Lungs B wheezes. Abd pendulous, SNT. BS + E + edema. HITESH KRISTINE. Rafael Burgess MD Jan 05, 2019 08:21
[2019-01-05] MEDS: Heparin 5000 units/ml inj SUBQ SCH ×2 (09:00→21:33)
[2019-01-05] MEDS ORDERED: Epoetin Alfa(ESRD on dialysis)10,000 unit/ml vial SUBQ SCH ×3 (09:00→21:00)
[2019-01-05 09:38] LABS: ANION GAP 11 mmol/L (5-15); BLOOD UREA NITROGEN 69 mg/dL (7-18); CALCIUM 8.9 MG/DL (8.5-10.1); CARBON DIOXIDE 25 MMOL/L (21-32); CHLORIDE 95 MMOL/L (98-107); CREATININE 8.1 MG/DL (0.55-1.30); POTASSIUM 5.2 MMOL/L (3.5-5.1); SODIUM 131 MMOL/L (136-145)
--- NOTE | 2019-01-05 10:17 | NUR ---
NURSE NOTES: Called pharmacy regarding patients medication. Per pharmacy, they will retime the order as medication is due at night.
--- NOTE | 2019-01-05 10:33 | Pulmonology Progress Note ---
Assessment/Plan Assessment/Plan Pulmonary Progress Note Assessment/Plan 1. Fluid overload. 2. Pulmonary edema. 3. End-stage renal disease. 4. Leukocytosis of unclear etiology. 5. Hypernatremia. 6. Hyperglycemia. 7. Diabetes. PLAN vanco- dc cultures negative HD follow up with [facility] and dialysis improved Subjective Allergies: Coded Allergies: PENICILLINS (Verified Allergy, Unknown, 05/22/18) Subjective improved no distress no new complaints Objective Vital Signs Noted Laboratory Tests 01/04/19 03:35: White Blood Count 9.7, Red Blood Count 3.26L, Hemoglobin 9.6L, Hematocrit 28.8L , Mean Corpuscular Volume 88, Mean Corpuscular Hemoglobin 29.4, Mean Corpuscular Hemoglobin Concent 33.3, Red Cell Distribution Width 17.6H, Platelet Count 182, Mean Platelet Volume 6.7, Neutrophils (%) (Auto) 70.4, Lymphocytes (%) (Auto) 15.0L, Monocytes (%) (Auto) 11.1H, Eosinophils (%) (Auto ) 2.8, Basophils (%) (Auto) 0.7, Sodium Level 134L, Potassium Level 4.7, Chloride Level 96L, Carbon Dioxide Level 25, Anion Gap 13, Blood Urea Nitrogen 53H, Creatinine 6.9H, Estimat Glomerular Filtration Rate , Glucose Level 70L, Calcium Level 8.8 01/04/19 03:55: Random Vancomycin Level 13.2 Height (Feet): 5 Height (Inches): 8.00 Weight (Pounds): 173 Objective WDWN NAD clear breath sounds bilaterally without rhonchi or wheeze [id number] without MRG NABS nontender no HSM no CCE nonfocal Subjective ROS Limited/Unobtainable: No Allergies: Coded Allergies: PENICILLINS (Verified Allergy, Unknown, 05/22/18) Objective Last 24 Hour Vital Signs Date Time Temp Pulse Resp B/P (MAP) Pulse Ox O2 Delivery O2 Flow Rate FiO2 01/05/19 09:18 97 33 Bi-pap 100 01/05/19 08:00 73 01/05/19 05:00 170/62 01/05/19 04:58 121 52 93 Facial 100 01/05/19 04:00 97.9 79 19 170/62 (98) 80 01/05/19 04:00 93 01/05/19 04:00 4.0 100 01/05/19 03:05 72 39 99 Facial 40 01/05/19 01:13 73 35 100 Facial 40 01/05/19 00:00 72 01/05/19 00:00 4.0 40 01/05/19 00:00 99.1 75 18 131/80 (97) 100 01/04/19 22:45 183/88 01/04/19 21:05 72 37 99 Facial 50 01/04/19 21:00 Bi-pap 4.0 01/04/19 20:00 100.1 90 18 170/87 (114) 100 01/04/19 20:00 91 01/04/19 18:50 98 46 92 Facial 100 01/04/19 18:50 98 46 Bi-pap 100 01/04/19 16:44 4.0 65 01/04/19 16:00 70 01/04/19 16:00 97.3 72 19 165/80 (108) 94 01/04/19 12:00 Nasal Cannula 4.0 01/04/19 12:00 4.0 01/04/19 11:51 98.8 80 20 159/80 (106) 94 Intake and Output 01/04/19 01/05/19 19:00 07:00 Intake Total 515.000 ml Output Total 50 ml 0 ml Balance 465.000 ml 0 ml Intake Oral 240 ml IV Total 275.000 ml Output Urine Total 50 ml 0 ml # Voids 1 Laboratory Tests 01/04/19 13:00: White Blood Count 10.8, Red Blood Count 3.76L, Hemoglobin 10.8L, Hematocrit 33.4L, Mean Corpuscular Volume 89, Mean Corpuscular Hemoglobin 28.6, Mean Corpuscular Hemoglobin Concent 32.2, Red Cell Distribution Width 18.0H, Platelet Count 227, Mean Platelet Volume 6.4L, Neutrophils (%) (Auto) 77.4H, Lymphocytes (%) (Auto) 10.1L, Monocytes (%) (Auto) 10.2H, Eosinophils (%) (Auto ) 1.7, Basophils (%) (Auto) 0.6, Sodium Level 132L, Potassium Level 4.8, Chloride Level 92L, Carbon Dioxide Level 27, Anion Gap 13, Blood Urea Nitrogen 61H, Creatinine 7.7H, Estimat Glomerular Filtration Rate , Glucose Level 169#H, Calcium Level 9.3 01/05/19 06:19: White Blood Count 12.5H, Red Blood Count 3.36L, Hemoglobin 9.9L, Hematocrit 29.6L, Mean Corpuscular Volume 88, Mean Corpuscular Hemoglobin 29.5, Mean Corpuscular Hemoglobin Concent 33.4, Red Cell Distribution Width 18.1H, Platelet Count 228, Mean Platelet Volume 6.9, Neutrophils (%) (Auto) , Lymphocytes (%) (Auto) , Monocytes (%) (Auto) , Eosinophils (%) (Auto) , Basophils (%) (Auto) , Differential Total Cells Counted 100, Neutrophils % ( Manual) 86H, Lymphocytes % (Manual) 7L, Monocytes % (Manual) 7, Eosinophils % ( Manual) 0, Basophils % (Manual) 0, Band Neutrophils 0, Platelet Estimate Adequate, Platelet Morphology Normal, Hypochromasia 2+, Anisocytosis 2+, Spherocytes 1+ 01/05/19 06:20: Arterial Blood pH 7.394, Arterial Blood Partial Pressure CO2 30.9L, Arterial Blood Partial Pressure O2 197.7H, Arterial Blood HCO3 18.5L, Arterial Blood Oxygen Saturation 99.0, Arterial Blood Base Excess -5.5L, Isidoro Test Positive 01/05/19 09:00: Sodium Level 131L, Potassium Level 5.2H, Chloride Level 95L, Carbon Dioxide Level 25, Anion Gap 11, Blood Urea Nitrogen 69H, Creatinine 8.1H, Estimat Glomerular Filtration Rate , Glucose Level 111H, Calcium Level 8.9 Current Medications Medications (Trade) Dose Ordered Sig/Parish Route PRN Reason Start Time Stop Time Status Last Admin Dose Admin Acetaminophen (Tylenol) 650 mg Q4H PRN ORAL TEMP>100.5 01/04/19 13:00 02/03/19 12:59 Clonidine HCl (Catapres Tab) 0.1 mg Q4H PRN ORAL SBP > 150mmHg 01/04/19 13:00 02/01/19 12:59 01/05/19 05:00 Dextrose (Dextrose 50%) 25 ml Q30M PRN IV Hypoglycemia 01/04/19 13:30 02/01/19 07:27 Dextrose (Dextrose 50%) 50 ml Q30M PRN IV hypoglycemia 01/04/19 13:30 02/01/19 07:29 Epoetin Derek (Epoetin Derek(ESRD on dialysis)) 10,000 unit MON-WED-TUE SUBQ 01/05/19 21:00 02/04/19 20:59 Heparin Sodium (Porcine) (Heparin 5000 units/ml) 5,000 units EVERY 12 HOURS SUBQ 01/04/19 21:00 02/01/19 08:59 01/04/19 21:57 Heparin Sodium (Porcine) (Heparin Sod 1000 units/ml 10ml) 2,000 unit ONCE IV 01/05/19 07:00 01/05/19 23:59 Heparin Sodium (Porcine) (Heparin Sod 1000 units/ml 10ml) 2,000 unit ONCE IV 01/06/19 08:30 01/06/19 23:59 Insulin Aspart (NovoLOG) BEFORE MEALS AND HS SUBQ 01/04/19 16:30 02/01/19 11:29 01/05/19 06:32 Lorazepam (Ativan 2mg/ml 1ml) 1 mg Q4H PRN IV For Anxiety 01/05/19 05:45 01/12/19 05:44 Lorazepam (Ativan) 1 mg Q4H PRN ORAL For Anxiety 01/05/19 05:45 01/12/19 05:44 Sodium Chloride 1,000 ml @ 500 mls/hr Q2H PRN IVLG sbp<90 during hd 01/05/19 07:00 01/05/19 23:59 Sodium Chloride 1,000 ml @ 500 mls/hr Q2H PRN IVLG sbp<90 during hd 01/06/19 08:21 01/06/19 23:59 Vancomycin HCl (Vanco rx to dose) 1 ea DAILY PRN MISC Per rx protocol 01/05/19 09:00 02/01/19 08:44 Ilya Frank MD Jan 05, 2019 10:33
[2019-01-05 12:00] VITALS: BP 144/65
--- NOTE | 2019-01-05 13:03 | NUR ---
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 ACUTE RESPIRATORY FAILURE WITH HYPOXIA VS: BP 170/62, P 121, T 97.9, RR 52, SPO2 93 Bi-pap 4.0L FiO2 100 Na 131, K 5.2, BUN 69, CR 8.1, WBC 12.5, RBC 3.36, Hgb 9.9, Hct 29.6 IS:HEPARIN SUBQ NOVOLOG SUBQ CLONIDINE 0.1mg HEPARIN 2,000 units IV TELE STATUS
--- NOTE | 2019-01-05 13:46 | NUR ---
*-* INSURANCE *-* ALL CLINICALS AND REVIEWS HAVE BEEN FAXED TO: DAVID MARTI# [id number] [facility]: [place]EV[place] P- [phone] ASK TO BE TRS TO [facility] F- [phone]
--- NOTE | 2019-01-05 15:45 | NUR ---
RESPIRATORY NOTE: Placed pt back on Bipap with the same previous settings per RN's request due to desaturation, labored/shallow breathing. SOB. Foam tapes are placed on chin/cheeks and nose bridge to prevent skin breakdown. No redness or skin breakdown prior to applying the mask. Pt is awake/alert and not in distress at this time. Alarms are set and audible. Will continue to monitor pt.
[2019-01-05 16:00] VITALS: BP 157/83
[2019-01-05] MEDS ORDERED: NS 275ml ONE (16:11)
--- NOTE | 2019-01-05 16:38 | NUR ---
COLLAR BASTER JUMPBASTING NOTES SPOKE WITH HECTOR LOGAN FROM [facility], ALL CLINICALS FAXED TO UR DEPARTMENT. PT PENDING TRANSFER WHEN BED IS AVAILABLE. SPOKE WITH PT'S SON KASSIE, MADE AWARE OF PENDING TRANSFER TO [facility] WHEN BED AVAILABLE. HECTOR (P) [phone] (F) [phone]
--- NOTE | 2019-01-05 19:29 | NUR ---
NURSE NOTES: Received call from Karen at [place] to give transfer information. Pt will be going to [facility] to room 5703. number to give report is [phone] Report given to TRES Welch. Plan of care endorsed.
--- NOTE | 2019-01-05 19:36 | NUR ---
NURSE NOTES: Received report from TRES Rodriguez. Patient is awake lying semi-perez's; resting comfortably. No signs of acute distress noted; denies pain at this time. On BiPAP with FiO2 of 100% saturating at 100%. AOx4; able to make needs known. Primarily Luxembourgish speaking. Patient able to reposition himself in the bed. Checked IV site; patent and flushed. No erythema, bleeding, or infiltration noted. Left forearm AV shunt noted; thrill and bruit present. Bed at lowest position, brakes on, siderails up x3. Call light within reach. Will continue to monitor.
--- NOTE | 2019-01-05 19:53 | NUR ---
NURSE NOTES: Called [place] at [phone] and spoke to Riley to give report. Explained patients condition. Plan of care endorsed.
[2019-01-05 20:00] VITALS: BP 126/79
--- NOTE | 2019-01-05 20:53 | NUR ---
NURSE NOTES: [facility] arrived to [facility] patient. However, per RN transporter, patient cannot be transferred unless BiPAP FiO2 is less than 100% and patient is stable an hour after titrating FiO2 down to less than 100%. Patient's respiratory rate is currently 46 at 100% FiO2.
--- NOTE | 2019-01-05 21:50 | NUR ---
NURSE NOTES: Notified Leah [facility] skilled nursing case manager, that per [facility] RN transporter, patient can be transported under the condition that patient is stable an hour after titrating patient's BiPAP FiO2 from 100% to less than 100%. Per Leah, patient is unstable for discharge and will not be transferred tonight. Called Dr. Simon to notify him of the situation. No new orders received.
--- NOTE | 2019-01-05 23:25 | NUR ---
NURSE NOTES: Notified Ridge, patient's son, regarding of patient's discharge status and that patient will not be transferred to [facility].
[2019-01-06] VITALS (7 sets, daily range): BP systolic 116–148; BP diastolic 65–82
--- NOTE | 2019-01-06 04:42 | NUR ---
NURSE NOTES: Patient is asleep lying semi-perez's; resting comfortably. No signs of acute distress or pain noted at this time. On BiPAP machine.
--- NOTE | 2019-01-06 04:51 | NUR ---
NURSE NOTES: Patient's temperature noted to be 100.1. Cooling measures applied.
[2019-01-06] MEDS: NovoLOG Insulin Flexpen SUBQ SCH ×4 (06:26→21:22)
--- NOTE | 2019-01-06 06:32 | NUR ---
NURSE NOTES: Rechecked temperature. 98.9.
--- NOTE | 2019-01-06 07:19 | NUR ---
NURSE NOTES: Spoke to Ridge from [facility] regarding patient's hemodialysis procedure today. Was told, "We'll notify the court operations clerk dialysis nurse as soon as possible."
--- NOTE | 2019-01-06 07:24 | NUR ---
HAND-OFF: Report given to TRES Collier. Patient is asleep lying semi-perez's; resting comfortably. On BiPAP machine. In stable condition.
--- NOTE | 2019-01-06 07:35 | NUR ---
NURSE NOTES: Received report from TRES Welch. Patient in bed resting, no active s/s cardiac, respiratory distress noticed at this time. AOx4, SR with BBB HR 85. Patient on Bipap 08/30, FiO2 50%. Endorsed patient schedule for HD today 01/06/19 and Discharge pending due to patient unable to tolerate off Bipap and Dr. Simon made aware. AV shunt on left FA, IV site on right hand 22 G asymptomatic, patent, intact. Bed in lowest position, side rails upx2, call light within reach. Will continue to monitor.
[2019-01-06] MEDS ORDERED: Heparin Sod 1000 units/ml 10ml IV SCH (08:30)
[2019-01-06] MEDS: Heparin 5000 units/ml inj SUBQ SCH ×2 (08:38→21:00)
--- NOTE | 2019-01-06 12:43 | Nephrology Progress Note ---
Assessment/Plan Plan For HD + UF today. Anemia of CKD - MELA + IV Iron. Needs more UF + HD! Subjective Subjective Still SOB. HD finished. UF 4.5 L!! Objective Objective Last 24 Hour Vital Signs Date Time Temp Pulse Resp B/P (MAP) Pulse Ox O2 Delivery O2 Flow Rate FiO2 01/06/19 11:26 88 37 96 Facial 50 01/06/19 09:02 86 39 97 Facial 50 01/06/19 09:00 Bi-pap 01/06/19 08:00 50 01/06/19 08:00 98.9 81 30 132/72 (92) 95 01/06/19 06:56 87 47 Bi-pap 50 01/06/19 06:55 87 47 96 Facial 50 01/06/19 06:32 98.9 85 21 144/82 (102) 100 01/06/19 05:30 80 37 96 Facial 50 01/06/19 04:00 50 01/06/19 04:00 101.1 85 21 144/82 (102) 100 01/06/19 04:00 73 01/06/19 03:10 81 36 95 Facial 50 01/06/19 00:35 88 36 97 Facial 50 01/06/19 00:32 65 01/06/19 00:00 99.1 82 20 139/78 (98) 99 01/06/19 00:00 83 01/05/19 23:29 85 40 98 Facial 50 01/05/19 21:15 89 45 97 Facial 50 01/05/19 21:00 Bi-pap 01/05/19 20:00 86 01/05/19 20:00 99.7 88 24 126/79 (95) 100 01/05/19 18:53 91 44 Bi-pap 100 01/05/19 18:45 91 44 95 Facial 100 01/05/19 16:00 106 01/05/19 16:00 4.0 01/05/19 16:00 98.0 96 22 157/83 (107) 95 01/05/19 15:45 98 37 95 Facial 100 Intake and Output 01/05/19 01/06/19 19:00 07:00 Intake Total 600 ml 50 ml Balance 600 ml 50 ml Intake Oral 600 ml Other 50 ml Laboratory Tests 01/06/19 04:55: Random Vancomycin Level 25.5 Height (Feet): 5 Height (Inches): 8.00 Weight (Pounds): 171 Objective On BIPAP. CV RR Lungs B wheezes. Abd pendulous, SNT. BS + E + edema. HITESH KRISTINE. Rafael Burgess MD Jan 06, 2019 12:43
--- NOTE | 2019-01-06 14:00 | NUR ---
CASE MANAGEMENT: REVIEW SI: PULMONARY EDEMA . ESRD T 97.6 HR 76 RR 39 BP 116/65 SAT 96% BIPAP FIO2 50 WBC 12.5 H/H 9.9/29.6 NA 131 K 5.2 BUN 69 CR 8.1 IS: EPOETIN SQ MWF HEPARIN SQ Q12HR TELEMETRY UNIT STATUS DCP: PATIENT IS FROM HOME
--- NOTE | 2019-01-06 15:44 | NUR ---
NURSE NOTES: Patient got HD, tolerating well, 4.5 L out, last BP 128/80, HR 78. Will continue to monitor.
--- NOTE | 2019-01-06 16:12 | NUR ---
NURSE NOTES: Dr. Simon made aware patient got HD 4.5 L out, tried off Bipap for 2hours, patient able to tolerate with 4L oxygen, O2 sat 94%, HR 84, RR 28. Awaiting for call back. Called returned case inspector, Dee Dee, clarification if [facility] still has bed for the patient.
--- NOTE | 2019-01-06 16:22 | NUR ---
CASE MANAGEMENT: DCPNOTE PER MD ORDER PATIENT REFERRED FOR TRANSFER TO [facility] [phone] PH / [phone] FAX AWAITING BED AVAILABILITY
--- NOTE | 2019-01-06 17:00 | NUR ---
NURSE NOTES: Per dax Howell to discharge patient to [place].
--- NOTE | 2019-01-06 17:12 | Pulmonology Progress Note ---
Assessment/Plan Assessment/Plan Pulmonary Progress Note Assessment/Plan 1. Fluid overload. 2. Pulmonary edema. 3. End-stage renal disease. 4. Leukocytosis of unclear etiology. 5. Hypernatremia. 6. Hyperglycemia. 7. Diabetes. PLAN vanco- dc cultures negative HD follow up with [facility] TERRELL and dialysis improved Subjective Allergies: Coded Allergies: PENICILLINS (Verified Allergy, Unknown, 05/22/18) Subjective improved no distress no new complaints Objective Vital Signs Noted Laboratory Tests 01/04/19 03:35: White Blood Count 9.7, Red Blood Count 3.26L, Hemoglobin 9.6L, Hematocrit 28.8L , Mean Corpuscular Volume 88, Mean Corpuscular Hemoglobin 29.4, Mean Corpuscular Hemoglobin Concent 33.3, Red Cell Distribution Width 17.6H, Platelet Count 182, Mean Platelet Volume 6.7, Neutrophils (%) (Auto) 70.4, Lymphocytes (%) (Auto) 15.0L, Monocytes (%) (Auto) 11.1H, Eosinophils (%) (Auto ) 2.8, Basophils (%) (Auto) 0.7, Sodium Level 134L, Potassium Level 4.7, Chloride Level 96L, Carbon Dioxide Level 25, Anion Gap 13, Blood Urea Nitrogen 53H, Creatinine 6.9H, Estimat Glomerular Filtration Rate , Glucose Level 70L, Calcium Level 8.8 01/04/19 03:55: Random Vancomycin Level 13.2 Height (Feet): 5 Height (Inches): 8.00 Weight (Pounds): 173 Objective WDWN NAD clear breath sounds bilaterally without rhonchi or wheeze [id number] without MRG NABS nontender no HSM no CCE nonfocal Subjective ROS Limited/Unobtainable: No Allergies: Coded Allergies: PENICILLINS (Verified Allergy, Unknown, 05/22/18) Objective Last 24 Hour Vital Signs Date Time Temp Pulse Resp B/P (MAP) Pulse Ox O2 Delivery O2 Flow Rate FiO2 01/06/19 16:00 4.0 01/06/19 16:00 97.7 84 29 141/74 (96) 96 01/06/19 13:06 86 37 97 Facial 50 01/06/19 12:00 4.0 01/06/19 12:00 97.6 76 29 116/65 (82) 96 01/06/19 12:00 83 01/06/19 11:26 88 37 96 Facial 50 01/06/19 09:02 86 39 97 Facial 50 01/06/19 09:00 Bi-pap 01/06/19 08:00 50 01/06/19 08:00 77 01/06/19 08:00 98.9 81 30 132/72 (92) 95 01/06/19 06:56 87 47 Bi-pap 50 01/06/19 06:55 87 47 96 Facial 50 01/06/19 06:32 98.9 85 21 144/82 (102) 100 01/06/19 05:30 80 37 96 Facial 50 01/06/19 04:00 50 01/06/19 04:00 101.1 85 21 144/82 (102) 100 01/06/19 04:00 73 01/06/19 03:10 81 36 95 Facial 50 01/06/19 00:35 88 36 97 Facial 50 01/06/19 00:32 65 01/06/19 00:00 99.1 82 20 139/78 (98) 99 01/06/19 00:00 83 01/05/19 23:29 85 40 98 Facial 50 01/05/19 21:15 89 45 97 Facial 50 01/05/19 21:00 Bi-pap 01/05/19 20:00 86 01/05/19 20:00 99.7 88 24 126/79 (95) 100 01/05/19 18:53 91 44 Bi-pap 100 01/05/19 18:45 91 44 95 Facial 100 Intake and Output 01/05/19 01/06/19 19:00 07:00 Intake Total 600 ml 50 ml Balance 600 ml 50 ml Intake Oral 600 ml Other 50 ml Laboratory Tests 01/06/19 04:55: Random Vancomycin Level 25.5 Current Medications Medications (Trade) Dose Ordered Sig/Parish Route PRN Reason Start Time Stop Time Status Last Admin Dose Admin Acetaminophen (Tylenol) 650 mg Q4H PRN ORAL TEMP>100.5 01/04/19 13:00 02/03/19 12:59 Clonidine HCl (Catapres Tab) 0.1 mg Q4H PRN ORAL SBP > 150mmHg 01/04/19 13:00 02/01/19 12:59 01/05/19 05:00 Dextrose (Dextrose 50%) 25 ml Q30M PRN IV Hypoglycemia 01/04/19 13:30 02/01/19 07:27 Dextrose (Dextrose 50%) 50 ml Q30M PRN IV hypoglycemia 01/04/19 13:30 02/01/19 07:29 Epoetin Derek (Epoetin Derek(ESRD on dialysis)) 10,000 unit MON-WED-TUE SUBQ 01/05/19 21:00 02/04/19 20:59 01/05/19 21:32 Heparin Sodium (Porcine) (Heparin 5000 units/ml) 5,000 units EVERY 12 HOURS SUBQ 01/04/19 21:00 02/01/19 08:59 01/06/19 08:38 Heparin Sodium (Porcine) (Heparin Sod 1000 units/ml 10ml) 2,000 unit ONCE IV 01/06/19 08:30 01/06/19 23:59 Insulin Aspart (NovoLOG) BEFORE MEALS AND HS SUBQ 01/04/19 16:30 02/01/19 11:29 01/06/19 12:59 Lorazepam (Ativan 2mg/ml 1ml) 1 mg Q4H PRN IV For Anxiety 01/05/19 05:45 01/12/19 05:44 Lorazepam (Ativan) 1 mg Q4H PRN ORAL For Anxiety 01/05/19 05:45 01/12/19 05:44 01/05/19 21:34 Sodium Chloride 1,000 ml @ 500 mls/hr Q2H PRN IVLG sbp<90 during hd 01/06/19 08:21 01/06/19 23:59 Vancomycin HCl (Vanco rx to dose) 1 ea DAILY PRN MISC Per rx protocol 01/05/19 09:00 02/01/19 08:44 Ilya Frank MD Jan 06, 2019 17:12
--- NOTE | 2019-01-06 18:00 | NUR ---
NURSE NOTES: Spoke with assistant fitness manager from [facility], requesting for discharge summary, progress notes, labs, medication. Paged Dr. Simon for discharge summary, per Dr. Simon, unable to write since off today. Called [facility] regarding discharge summary, per [facility] will talk to their physician.
--- NOTE | 2019-01-06 19:50 | NUR ---
RESPIRATORY NOTE: Received pt. on BIPAP. BIPAP settings are: 12/5, PS 7, rate of 18, FI02 50%.Pt. sP02 @ 98%. BIPAP plugged on red outlet. Will continue to monitor pt.
--- NOTE | 2019-01-06 20:12 | NUR ---
NURSE NOTES: Wound uploaded for other patient.
--- NOTE | 2019-01-06 20:15 | NUR ---
HAND-OFF: Report given to TRES Welch.
--- NOTE | 2019-01-06 20:20 | NUR ---
NURSE NOTES: Received report from TRES Collier. Patient is asleep lying semi-perez's; resting comfortably. Arousable to verbal and tactile stimuli. No signs of acute distress noted; denies pain at this time. On BiPAP with FiO2 of 50% saturating at 99%. AOx4; able to make needs known. Primarily Faroese speaking. Checked IV site; patent and flushed. No erythema, bleeding, or infiltration noted. Left forearm AV shunt noted; thrill and bruit present. Bed at lowest position, brakes on, siderails up x3. Call light within reach. Will continue to monitor.
--- NOTE | 2019-01-06 20:33 | NUR ---
NURSE NOTES: Called Dr. Frank regarding [facility]'s request for a discharge summary. Was told, "I will put it in the chart."
--- NOTE | 2019-01-06 20:44 | NUR ---
NURSE NOTES: Received call from Hannah ( ) at the [facility] with information that patient will be going to room 6105 ICU floor. Patient will be accepted by Dr. Andriy Crawford.
--- NOTE | 2019-01-06 20:54 | Discharge Summary ---
Discharge Summary Hospital Course Date of Admission Jan 02, 2019 at 00:42 Date of Discharge Jan 06, 2019 Admitting Diagnosis Pulmonary edema HPI Watson Thornton is a 78 year old male who was admitted on Jan 02, 2019 at 00:42 with Fluid Overload/Pulmonary Edema Date of Admission: 01/02/19 Date of Discharge: 01/06/19 Assessment/Plan 1. Fluid overload treated with Hemodialysis 2. Pulmonary edema. 3. End-stage renal disease. 4. Leukocytosis of unclear etiology treated with Vancomycin, cultures negative 5. Hypernatremia. 6. Hyperglycemia. 7. Diabetes on Insulin SS PLAN vanco- dc cultures negative HD follow up with Wang TERRELL and dialysis improved Labs: Laboratory Tests 01/06/19 04:55: Random Vancomycin Level 25.5 01/04/19 03:35: White Blood Count 9.7, Red Blood Count 3.26L, Hemoglobin 9.6L, Hematocrit 28.8L , Mean Corpuscular Volume 88, Mean Corpuscular Hemoglobin 29.4, Mean Corpuscular Hemoglobin Concent 33.3, Red Cell Distribution Width 17.6H, Platelet Count 182, Mean Platelet Volume 6.7, Neutrophils (%) (Auto) 70.4, Lymphocytes (%) (Auto) 15.0L, Monocytes (%) (Auto) 11.1H, Eosinophils (%) (Auto ) 2.8, Basophils (%) (Auto) 0.7, Sodium Level 134L, Potassium Level 4.7, Chloride Level 96L, Carbon Dioxide Level 25, Anion Gap 13, Blood Urea Nitrogen 53H, Creatinine 6.9H, Estimat Glomerular Filtration Rate , Glucose Level 70L, Calcium Level 8.8 01/04/19 03:55: Random Vancomycin Level 13.2 Height (Feet): 5 Height (Inches): 8.00 Weight (Pounds): 173 Subjective Allergies: Coded Allergies: PENICILLINS (Verified Allergy, Unknown, 05/22/18) Objective WDWN NAD clear breath sounds bilaterally without rhonchi or wheeze [id number] without MRG NABS nontender no HSM no CCE nonfocal Last 24 Hour Vital Signs Date Time Temp Pulse Resp B/P (MAP) Pulse Ox O2 Delivery O2 Flow Rate FiO2 01/06/19 16:00 4.0 01/06/19 16:00 97.7 84 29 141/74 (96) 96 01/06/19 13:06 86 37 97 Facial 50 01/06/19 12:00 4.0 01/06/19 12:00 97.6 76 29 116/65 (82) 96 01/06/19 12:00 83 01/06/19 11:26 88 37 96 Facial 50 01/06/19 09:02 86 39 97 Facial 50 01/06/19 09:00 Bi-pap 01/06/19 08:00 50 01/06/19 08:00 77 01/06/19 08:00 98.9 81 30 132/72 (92) 95 01/06/19 06:56 87 47 Bi-pap 50 01/06/19 06:55 87 47 96 Facial 50 01/06/19 06:32 98.9 85 21 144/82 (102) 100 01/06/19 05:30 80 37 96 Facial 50 01/06/19 04:00 50 01/06/19 04:00 101.1 85 21 144/82 (102) 100 01/06/19 04:00 73 01/06/19 03:10 81 36 95 Facial 50 01/06/19 00:35 88 36 97 Facial 50 01/06/19 00:32 65 01/06/19 00:00 99.1 82 20 139/78 (98) 99 01/06/19 00:00 83 01/05/19 23:29 85 40 98 Facial 50 01/05/19 21:15 89 45 97 Facial 50 01/05/19 21:00 Bi-pap 01/05/19 20:00 86 01/05/19 20:00 99.7 88 24 126/79 (95) 100 01/05/19 18:53 91 44 Bi-pap 100 01/05/19 18:45 91 44 95 Facial 100 Intake and Output 01/05/19 01/06/19 19:00 07:00 Intake Total 600 ml 50 ml Balance 600 ml 50 ml Intake Oral 600 ml Other 50 ml Current Medications Medications (Trade) Dose Ordered Sig/Parish Route PRN Reason Start Time Stop Time Status Last Admin Dose Admin Acetaminophen (Tylenol) 650 mg Q4H PRN ORAL TEMP>100.5 01/04/19 13:00 02/03/19 12:59 Clonidine HCl (Catapres Tab) 0.1 mg Q4H PRN ORAL SBP > 150mmHg 01/04/19 13:00 02/01/19 12:59 01/05/19 05:00 Dextrose (Dextrose 50%) 25 ml Q30M PRN IV Hypoglycemia 01/04/19 13:30 02/01/19 07:27 Dextrose (Dextrose 50%) 50 ml Q30M PRN IV hypoglycemia 01/04/19 13:30 02/01/19 07:29 Epoetin Derek (Epoetin Derek(ESRD on dialysis)) 10,000 unit TUE-TUE-TUE SUBQ 01/05/19 21:00 02/04/19 20:59 01/05/19 21:32 Heparin Sodium (Porcine) (Heparin 5000 units/ml) 5,000 units EVERY 12 HOURS SUBQ 01/04/19 21:00 02/01/19 08:59 01/06/19 08:38 Heparin Sodium (Porcine) (Heparin Sod 1000 units/ml 10ml) 2,000 unit ONCE IV 01/06/19 08:30 01/06/19 23:59 Insulin Aspart (NovoLOG) BEFORE MEALS AND HS SUBQ 01/04/19 16:30 02/01/19 11:29 01/06/19 12:59 Lorazepam (Ativan 2mg/ml 1ml) 1 mg Q4H PRN IV For Anxiety 01/05/19 05:45 01/12/19 05:44 Lorazepam (Ativan) 1 mg Q4H PRN ORAL For Anxiety 01/05/19 05:45 01/12/19 05:44 01/05/19 21:34 Sodium Chloride 1,000 ml @ 500 mls/hr Q2H PRN IVLG sbp<90 during hd 01/06/19 08:21 01/06/19 23:59 Vancomycin HCl (Vanco rx to dose) 1 ea DAILY PRN MISC Per rx protocol 01/05/19 09:00 02/01/19 08:44 Consultations [facility] Course Improved with Hemodialysis, Vancomycin for Leucocytosis Discharge Medications Continued Medications: Furosemide* (Lasix*) 20 Mg Tablet Unknown Dose ORAL DAILY, TAB (This prescription has been renewed) Glipizide* (Glipizide*) 5 Mg Tablet Unknown Dose ORAL BIDAC, TAB (This prescription has been renewed) Metformin Hcl* (Metformin Hcl*) 500 Mg Tablet Unknown Dose ORAL TWICE A DAY, TAB (This prescription has been renewed) Discharge Condition Upon Discharge: stable Discharge Disposition Patient was transferred to [facility] Discharge Diagnoses: (1) Pulmonary edema with congestive heart failure (2) Renal failure Ilya Frank MD Jan 06, 2019 20:54
--- NOTE | 2019-01-06 21:40 | NUR ---
NURSE NOTES: Received phone call from Hannah at the [facility] regarding ETA of [id number] for pickup.
--- NOTE | 2019-01-06 22:00 | NUR ---
NURSE NOTES: Report given to TRES Cobb from [facility] ICU . Per TRES Cobb, patient will be transferred to room 6102.
--- NOTE | 2019-01-06 22:26 | NUR ---
NURSE NOTES: Notified Ridge, patient's son, that patient will be picked up soon for transfer to [facility].
[2019-01-07] VITALS: BP 146/78
--- NOTE | 2019-01-07 00:16 | NUR ---
NURSE NOTES: Spoke to Toan from [facility] to follow up with transportation pick up worker time. Was told, "we don't know what the complications were, but they should be there at around 1 AM."
--- NOTE | 2019-01-07 01:33 | NUR ---
NURSE NOTES: Patient was discharged to [facility] via critical care transport accompanied by two GRINDING MILL OPERATOR, 1 RN, and 1 MD. No signs of acute distress noted; denies pain at this time. Patient verbalized, "I feel really good." Vital signs stable upon discharge and saturating 91% on 4L nasal cannula. Temperature rechecked. 99.0. Patient taken off Tele box; tolerated well. Belongings list checked with patient. Discharge packet given and explained to transport staff; verbalized understanding.
--- NOTE | 2019-01-09 09:31 | NUR ---
*-* INSURANCE *-* DISCHARGE SUMMARY HAS BEEN FAXED TO: [facility] F:[phone]
== END 2019-01-07 01:15 | disposition short-term general hospital (02) | DRG 291 ==
LOC: EDBD 22:21 → EMR 22:33 → 2W 01-02 00:42 → EDBEDREQ 01-02 01:27 → 2E 01-04 12:35
PROC: 5A09557 Assistance with Respiratory Ventilation, Greater than 96 Consecutive Hours, Continuous Positive Airway Pressure (ICD-10-PCS; principal; 2019-01-02)
PROC: 5A1D70Z Performance of Urinary Filtration, Intermittent, Less than 6 Hours Per Day (ICD-10-PCS; principal; 2019-01-02)
DX: I13.2 Hypertensive heart and chronic kidney disease with heart failure and with stage 5 chronic kidney disease, or end stage renal disease (principal); N18.6 End stage renal disease; J96.01 Acute respiratory failure with hypoxia; E87.0 Hyperosmolality and hypernatremia; I25.10 Atherosclerotic heart disease of native coronary artery without angina pectoris; Z95.5 Presence of coronary angioplasty implant and graft; E11.65 Type 2 diabetes mellitus with hyperglycemia; Z79.4 Long term (current) use of insulin; E11.22 Type 2 diabetes mellitus with diabetic chronic kidney disease; Z99.2 Dependence on renal dialysis; Z88.0 Allergy status to penicillin; I50.9 Heart failure, unspecified; Z95.0 Presence of cardiac pacemaker; Z79.84 Long term (current) use of oral hypoglycemic drugs; D63.1 Anemia in chronic kidney disease
CPT/HCPCS: 36415; 36600; 71045; 80048; 80053; 80202; 82550; 82553; 82803; 82962; 83880; 84484; 85007; 85025; 85610; 85730; 87040; 87081; 93005; 93306; 94640; 94660; 94664; 96374; 99291; J1815